=== PATIENT | female | born 2000 | race Hispanic/Latino ===

== ENCOUNTER 2023-02-09 15:58 | Day surgery (SDC) | payer OTHER ==
[2023-02-09] MEDS ORDERED: hydrALAZINE 20 MG/ML VIAL SLOW IVP PRN (16:57)
[2023-02-09 17:26] VITALS: BMI 34.7
== END 2023-02-09 18:07 | disposition home health service (06) ==
LOC: CSHLD/OP 15:58
PROVIDERS: ATTEND Family Medicine
DX: O47.03 False labor before 37 completed weeks of gestation, third trimester (principal); O99.891 Other specified diseases and conditions complicating pregnancy; R10.2 Pelvic and perineal pain; Z79.899 Other long term (current) drug therapy; Z88.0 Allergy status to penicillin; Z3A.34 34 weeks gestation of pregnancy